=== PATIENT | female | born 1980 | race Caucasian/White ===

== ENCOUNTER 2017-12-30 16:23 | Emergency (ER) | payer MEDICAID ==
[2017-12-30 16:53] LABS: BILIRUBIN,URINE NEGATIVE (NEGATIVE); GLUCOSE, URINE (UA) NEGATIVE (NEGATIVE); KETONES,URINE (UA) NEGATIVE (NEGATIVE); LEUKOCYTE ESTERASE, URINE NEGATIVE (NEGATIVE); NITRITE,URINE NEGATIVE (NEGATIVE); OCCULT BLOOD,URINE LARGE (NEGATIVE); PROTEIN,URINE NEGATIVE (NEGATIVE); UROBILINOGEN,URINE 1 (NORMAL) E.U./dL (NORMAL)
[2017-12-30 16:56] LABS: CLARITY,URINE HAZY (CLEAR)
[2017-12-30 17:08] LABS: SQUAMOUS EPITHELIAL CELL,UR MOD Squamous (<= Few)
[2017-12-30 17:09] LABS: BACTERIA,URINE Few /HPF (None Seen); MUCUS,URINE Marked Strands
--- NOTE | 2017-12-30 17:29 | ED Physician Documentation ---
PD HPI FEMALE - Stated complaint Stated Complaint: 10WKS PREG/BLEEDING/BACKPX - Chief complaint Chief Complaint: Abd Pain - History obtained from History obtained from: Patient - History of Present Illness Timing - onset: Today Timing - details: Abrupt onset, Still present (had onset of cramps and had some bleeding vaginally. Does not seem to have ongoing bleeding.) Associated symptoms: Pelvic pain (today with cramping). 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 Had pelvic at that time, and patient says provider commented on some c ervical bleeding on exam.) Review of Systems Constitutional: denies: Fever, Chills Nose: denies: Rhinorrhea / runny nose, Congestion Throat: denies: Sore throat GI: reports: Nausea. 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 SPECIALIST: section - Present Medications Home Medications: Ambulatory Orders Medication Instructions Recorded Confirmed No Known Home Medications 12/30/17 12/30/17 - Allergies Allergies/Adverse Reactions: Allergies Allergy/AdvReac Type Severity Reaction Status Date / Time Penicillins Allergy Hives Verified 12/30/17 16:38 - Social History Does the pt smoke?: No Smoking Status: Never smoker Does the pt drink ETOH?: No Does the pt have substance abuse?: No - Immunizations Immunizations are current?: Yes PD ED PE NORMAL - Vitals Vital signs reviewed: Yes - General General: Alert and oriented X 3, No acute distress, Well developed/nourished - Cardiac Cardiac: RRR, No murmur - Respiratory Respiratory: Clear bilaterally - Abdomen Abdomen: Normal bowel sounds, Soft, Non tender, Non distended, No organomegaly - Female Female : Deferred - Back Back: No CVA TTP - Derm Derm: Normal color, Warm and dry - Extremities Extremities: No tenderness to palpate, Normal ROM s pain, No edema, No calf tenderness / cord - Neuro Neuro: Alert and oriented X 3, No motor deficit, Normal speech Results - Vitals Vitals: Vital Signs - 24 hr 12/30/17 12/30/17 16:34 19:23 Temperature 37 C Heart Rate 61 54 L Respiratory 18 15 Rate Blood Pressure 122/67 122/76 O2 Saturation 100 100 Oxygen O2 Source Room air - Labs Labs: Laboratory Tests 12/30/17 12/30/17 12/30/17 16:40 16:58 16:58 WBC 7.7 RBC 4.14 L Hgb 12.8 Hct 37.7 MCV 91.1 MCH 30.8 MCHC 33.8 RDW 13.8 Plt Count 267 MPV 8.3 Neut # (Auto) 5.0 Lymph # (Auto) 1.9 [place] # (Auto) 0.6 Eos # (Auto) 0.1 Baso # (Auto) 0.1 Absolute Nucleated RBC 0.00 Nucleated RBC % 0.0 HCG, Quant 2743.00 Urine Color YELLOW Urine Clarity HAZY Urine pH 6.0 Ur Specific [place] >=1.030 H Urine Protein NEGATIVE Urine Glucose (UA) NEGATIVE Urine Ketones NEGATIVE Urine Occult Blood LARGE H Urine Nitrite NEGATIVE Urine Bilirubin NEGATIVE Urine Urobilinogen 1 (NORMAL) Ur Leukocyte Esterase NEGATIVE Urine RBC 6-10 H Urine WBC 4-5 Ur Squamous Epith Cells MOD Squamous H Urine Bacteria Few Urine Mucus Marked Strands Ur Microscopic Review INDICATED Urine Culture Comments NOT INDICATED - Rads (name of study) OB u/s Radiology: Prelim report reviewed (fetus at 7 week size, without heart beat, c/w incomplete miscarriage. ) PD MEDICAL DECISION MAKING - ED course Complexity details: reviewed results (U/S showing IUP 7 week size without heart beat. Presume IUFD 2 weeks ago and incomplete miscarriage at this time, but would want to verify with repeat quant in 2-3 days. ), considered differential (had had U/S 2 weeks ago showing FHR and 7 week size. ), d/w patient Departure - Departure Disposition: 01 Home, Self Care Clinical Impression: Bleeding in early , Threatened miscarriage in early Condition: Stable Record reviewed to determine appropriate education?: Yes Instructions: ED Miscarriage Poss Follow-Up: Sunny Nicole MD [Primary Care Provider] - Comments: Drink lots of fluids. Tylenol if needed for pains or cramps. Follow-up with your OB office in 2-3 days for repeat blood test to see if it is going up or down compared to today. This will better verify the viability of the fetus with the concern that the ultrasound today may have just missed the heartbeat rather than being miscarriage. Discharge Date/Time: 12/30/17 20:07
[2017-12-30] MEDS ORDERED: ACETAMINOPHEN 325 MG TABLET PO STA (17:47)
[2017-12-30 19:24] VITALS: BP 122/76
--- NOTE | 2017-12-30 19:34 | Ultrasound Report ---
Reason: early preg, spotting bleeding Procedure Date: 12/30/2017 Accession Number: [id number] / [id number] Procedure: US - OB First Trimester CPT Code: FULL RESULT: EXAM: FIRST TRIMESTER OBSTETRIC ULTRASOUND (Less than 11 weeks) EXAM DATE: 12/30/2017 07:16 PM. CLINICAL HISTORY: Early . Spotting. Bleeding. LMP: 10/23/2017. COMPARISONS: None. TECHNIQUE: Transabdominal and transvaginal ultrasound examination with static image documentation. CLINICAL DATES: EGA 9 weeks 5 days with DAVID 07/30/2018 based on LMP. ASSESSMENT: Gestational Sac: Single intrauterine. Embryo: CRL (crown-rump length) 10.9 mm = 7 weeks 1 day. Cardiac activity: 0 beats per minute. Yolk sac: Nonvisualized. Amniotic fluid: Not accurately assessed at this gestational age. Early placenta: Not visible at this gestational age. Other: Small perigestational fluid collection noted. MATERNAL STRUCTURES: Uterus: Anteverted. Unremarkable. Cervix: Closed. Right Ovary/Adnexa: The ovary measures 3.4 x 2.7 x 3.2 cm, volume 15.3 cc. Unremarkable. Dominant follicle measures 2.2 x 2.2 x 2.3 cm. Left Ovary/Adnexa: The ovary measures 3.3 x 1.8 x 1.8 cm, volume 5.6 cc. Unremarkable. Free Fluid: None. Other: None. IMPRESSION: Failed early , with crown-rump length of 10.9 mm, 7 weeks 1 day gestational age size, and no heartbeat. RADIA
[2017-12-30 19:48] LABS: BASOPHILS # (AUTO) 0.1 10^3/uL (0.0-0.1); BASOPHILS % (AUTO) 0.8 %; EOSINOPHILS # (AUTO) 0.1 10^3/uL (0.0-0.7); EOSINOPHILS % (AUTO) 1.3 %; HGB - HEMOGLOBIN 12.8 g/dL (12.0-16.0); LYMPHOCYTES # (AUTO) 1.9 10^3/uL (1.5-3.5); LYMPHOCYTES % (AUTO) 24.8 %; MEAN CORPUSCULAR HEMOGLOBIN 30.8 pg (27.0-31.0); MEAN CORPUSCULAR HGB CONC 33.8 g/dL (32.0-36.0); MEAN CORPUSCULAR VOLUME 91.1 fL (81.0-99.0); MEAN PLATELET VOLUME 8.3 fL (7.9-10.8); MONOCYTES # (AUTO) 0.6 10^3/uL (0.0-1.0); MONOCYTES % (AUTO) 7.8 %; NEUTROPHILS % (AUTO) 65.3 %; PLT - PLATELET COUNT 267 10^3/uL (130-450); RED BLOOD COUNT 4.14 10^6/uL (4.20-5.40); RED CELL DISTRIBUTION WIDTH 13.8 % (12.0-15.0); WHITE BLOOD COUNT 7.7 x10^3/uL (4.8-10.8)
== END 2017-12-30 20:07 | disposition home or self-care (01) ==
LOC: ED 16:23
DX: O20.9 Hemorrhage in early pregnancy, unspecified (principal); O20.0 Threatened abortion; Z3A.01 Less than 8 weeks gestation of pregnancy
CPT/HCPCS: 36415; 76801; 76817; 81001; 84702; 85025; 99283; A9270; 81003; 87086

== ENCOUNTER 2019-03-13 03:05 | Emergency (ER) | payer MEDICAID ==
[2019-03-13] MEDS ORDERED: IPRATROPIUM/ALBUTEROL 3 ML NEB INH STA (03:42)
[2019-03-13] MEDS ORDERED: DEXAMETHASONE 10 MG/ML VIAL PO STA (03:42)
[2019-03-13] MEDS ORDERED: KETOROLAC 60 MG/2 ML VIAL IM STA (03:42)
[2019-03-13] MEDS ORDERED: CHERRY SYRUP 10 ML UDC PO ONE (03:42)
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
[2019-03-13 03:52] LABS: RAPID STREP SCREEN Negative (Negative)
--- NOTE | 2019-03-13 04:28 | XRAY Report ---
Reason: cough and chest pain Procedure Date: 03/13/2019 Accession Number: [id number] / [id number] Procedure: XR - Chest 2 View X-Ray CPT Code: 52559 Final Report FULL RESULT: EXAM: CHEST RADIOGRAPHY EXAM DATE: 03/13/2019 04:22 AM. CLINICAL HISTORY: Cough and chest pain. COMPARISON: None. TECHNIQUE: 2 views. FINDINGS: Lungs/Pleura: No focal opacities evident. No pleural effusion. No pneumothorax. Normal volumes. Mediastinum: Heart and mediastinal contours are unremarkable. Other: None. IMPRESSION: Normal 2-view chest radiography. RADIA
[2019-03-13] MEDS ORDERED: AZITHROMYCIN 250 MG TABLET PO STA (05:18)
[2019-03-13 05:43] VITALS: BP 128/78
== END 2019-03-13 05:45 | disposition home or self-care (01) ==
LOC: ED 03:05
DX: M94.0 Chondrocostal junction syndrome [Tietze] (principal); H66.003 Acute suppurative otitis media without spontaneous rupture of ear drum, bilateral; J35.1 Hypertrophy of tonsils; Z88.0 Allergy status to penicillin
CPT/HCPCS: 71046; 87070; 87430; 94640; 96372; 99284; A9270